=== PATIENT | male | born 1995 | race Caucasian/White ===

== ENCOUNTER 2017-05-28 18:51 | Emergency (ER) ==
[2017-05-28 18:58] VITALS: BP 117/77; TEMP 98.6; BMI 27.3
[2017-05-28] MEDS ORDERED: MOTRIN PO STA (19:02)
--- NOTE | 2017-05-28 19:08 | ED.PDOC ---
General ED Provider: Dr. TAHIR MELGAR Chief Complaint: Ankle Pain/Injury Stated Complaint: Patient is a 22 year old male who states that while he was Playing football, running and was going to turn the other direction, his right foot got caught in a hole in the ground and twisted, then pt fell. He had severe pain now rates it at 7. Happened 1 hour ago. The right ankle and distal leg is swollen and is unable to bear weight. Time Seen by Physician: 19:00 Mode of Arrival: Wheelchair Information Source: Patient Exam Limitations: No limitations Primary Care Provider: POLO MELTON Nursing and Triage Documentation Reviewed and Agree: Yes Musculoskeletal Complaint Exam - Ankle/Foot Complaint/Exam Location of Injury: Reports: Right, Leg, Ankle Mechanism of Injury: Reports: Trauma Onset/Duration: 1 hour Symptoms Are: Reports: Still present Onset of Pain: Reports: Immediate, Post accident Initial Severity: Severe Current Severity: Moderate Location: Reports: Discrete (Medial right ankle) Character: Reports: Aching, Throbbing Alleviating: Reports: Position Aggravating: Reports: Movement, Weight bearing, Prolonged standing Associated Signs and Symptoms: Reports: Swelling. Denies: Redness, Bruising, Fever, Weakness, Numbness, Tingling Related History: Denies: Similar episode, Occupational injury Gout Risk Factors: Reports: None Related Surgical History: Reports: None Lower Extremity Findings: Present: Swelling, Tenderness, Limited range of motion Achilles Tendon Abnormality: No Tenderness: Present: Medial malleolus Limited Range of Motion: Present: Inversion, Eversion, Dorsiflexion, Plantarflexion Ankle/Foot Picture: 1 - swelling Differential Diagnosis: Closed Fracture, Sprain, Strain Review of Systems - Review Of Systems Constitutional: Reports: No symptoms Eyes: Reports: No symptoms Ears, Nose, Mouth, Throat: Reports: No symptoms Respiratory: Reports: No symptoms Cardiac: Reports: No symptoms GI: Reports: No symptoms : Reports: No symptoms Musculoskeletal: Reports: Joint pain, Joint swelling Skin: Reports: No symptoms Neurological: Reports: No symptoms Endocrine: Reports: No symptoms Hematologic/Lymphatic: Reports: No symptoms All Other Systems: Reviewed and Negative Past Medical History - Past Medical History Previously Healthy: No Endocrine: Reports: None Cardiovascular: Reports: None Respiratory: Reports: None Hematological: Reports: None Gastrointestinal: Reports: None Genitourinary: Reports: None Neuro/Psych: Reports: None Musculoskeletal: Reports: Arthritis (Psoriatic ) Cancer: Reports: None - Surgical History General Surgical History: Reports: None - Family History Family History: Reports: None - Social History Smoking Status: Never smoker Hx Substance Use: No Alcohol Screening: Occasionally - Immunizations Tetanus Shot up to Date: Yes Physical Exam - Physical Exam Appearance: Ill-appearing, Well-nourished Pain Distress: Severe Neck: Supple Respiratory: Airway patent, Breath sounds clear, Breath sounds equal, Respirations nonlabored Cardiovascular: RRR, Pulses normal, No rub, No murmur GI/: Soft, Nontender, No masses, Bowel sounds normal, No Organomegaly Musculoskeletal: No calf tenderness, Limited ROM, Edema Skin: Warm, Dry, Normal color Neurological: Sensation intact, Motor intact, Reflexes intact, Cranial nerves intact, Alert, Oriented Psychiatric: Affect appropriate, Mood appropriate Interpretation - Radiology Interpretation Radiology Interpretation By: ED Physician Radiology Results: Positive (Distal fibular fracture) Exam Interpreted: Other (right ankle x ray ) Critical Care Note - Critical Care Note Total Time (mins): 0 Course - Course Orders, Labs, Meds: Orders Category Date Time Status CRUTCHES [ED CRUTCHES] .ONCE EMERGENCY 05/28/17 19:41 Ordered ED SPLINT APPLICATION .ONCE EMERGENCY 05/28/17 19:41 Ordered Ibuprofen [Motrin] MEDS 05/28/17 19:02 Discontinued 800 mg PO ONCE STA ANKLE, RIGHT MIN 3 VIEWS Stat RADS 05/28/17 19:03 Taken TIBIA/FIBULA, RIGHT 2 VIEW Stat RADS 05/28/17 19:03 Taken Medications Discontinued Medications Generic Name Dose Route Start Last Admin Trade Name Freq PRN Reason Stop Dose Admin Ibuprofen 800 mg 05/28/17 19:02 05/28/17 19:06 Motrin PO 05/28/17 19:03 800 mg ONCE STA Administration Vital Signs: Temp Pulse Resp BP Pulse Ox 05/28/17 18:52 98.6 F 99 H 20 117/77 97 Departure - Departure Time of Disposition: 19:18 Disposition: HOME SELF-CARE Discharge Problem: Closed right fibular fracture Qualifiers: Encounter type: initial encounter Fibula location: shaft Fracture morphology: oblique Fracture alignment: displaced Qualifier Code: (S82.431A) Displaced oblique fracture of shaft of right fibula, initial encounter for closed fracture Instructions: Ankle Fracture (ED) Condition: Fair Pt referred to PMD for follow-up: Yes Additional Instructions: Keep foot elevated [facility] Bring your CD Images with you. Take pain medications as prescribed . Prescriptions: Hydrocodone/Acetaminophen [[place] 5-325 Tablet] 1 tab PO Q6HR PRN #20 tablet PRN Reason: PAIN Ibuprofen [Motrin] 600 mg PO Q6H PRN #30 tablet PRN Reason: Analgesia Allergies/Adverse Reactions: Allergies No Known Allergies Allergy (Verified 05/28/17 18:57) Home Medications: Ambulatory Orders Methotrexate Sodium [Trexall] 40 mg PO WEEKLY 07/19/16 Folic Acid/B Complex & C No.17 [Virt-Juan Ramon Plus Tablet] 5 mg PO DAILY 05/28/17 Hydrocodone/Acetaminophen [[place] 5-325 Tablet] 1 tab PO Q6HR PRN #20 tablet Ibuprofen [Motrin] 600 mg PO Q6H PRN #30 tablet 05/28/17 Disposition Discussed With: Patient, Family
--- NOTE | 2017-05-28 19:52 | DI ---
Exam: Right tibia and fibula two-view HISTORY: Inury and pain Findings / impression: Distal fibula diaphysis fracture displaced a maximum of 3-4 mm. No tibia fr acture is seen. There may be widening of the medial tibiotalar space.
--- NOTE | 2017-05-28 19:53 | DI ---
Exam: Right ankle three-view History: Trauma and deformity FINDINGS / impression: There is a distal fibula diaphysis fracture. Widening of the medial tibial talar space measuring roughly 10 mm. No avulsion fragments are seen., mild fracture is seen.
== END 2017-05-28 19:45 | disposition home or self-care (01) ==
LOC: ED 18:51
DX: S82.431A Displaced oblique fracture of shaft of right fibula, initial encounter for closed fracture (principal); W19.XXXA Unspecified fall, initial encounter; Y93.61 Activity, american tackle football
CPT/HCPCS: 99282

== ENCOUNTER 2018-07-14 02:16 | Emergency (ER) ==
[2018-07-14] MEDS ORDERED: LIDOCAINE HCL 1% SDV ONE (02:34)
[2018-07-14] MEDS ORDERED: LIDOCAINE HCL 1% SDV SUBCUT STA (02:34)
[2018-07-14 02:38] VITALS: BP 132/76; TEMP 97.6; BMI 29.8
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
--- NOTE | 2018-07-14 08:24 | DI ---
Exam: Three-view left wrist. Date: 07/14/2018. Comparison: None. HISTORY: Laceration; evaluate for foreign body. FINDINGS: The soft tissues are within normal limits and no radiopaque foreign bodies are observed. The mineralization is normal. The bones are intact and the joint spaces are preserved. Impression: No acute findings in the left wrist; no radiopaque foreign bodies are observed.
== END 2018-07-14 03:55 | disposition home or self-care (01) ==
LOC: ED 02:16
DX: S61.512A Laceration without foreign body of left wrist, initial encounter (principal); W25.XXXA Contact with sharp glass, initial encounter; F10.129 Alcohol abuse with intoxication, unspecified
CPT/HCPCS: 96372; 99282